=== PATIENT | female | born 1960 | race Caucasian/White ===

== ENCOUNTER 2018-06-28 19:31 | Emergency (ER) | payer OTHER, MEDICARE ==
[2018-06-28 19:53] VITALS: BP 129/63; PULSE 82; TEMP 97.6; BMI 18.6
[2018-06-28] MEDS ORDERED: ACETAMINOPHEN 1000 MG/100 ML VIAL (NON FORMULARY) IVPB ONE (20:12)
[2018-06-28] MEDS ORDERED: ONDANSETRON 4 MG/2 ML VIAL IVPB ONE (20:12)
[2018-06-28] MEDS ORDERED: SODIUM CHLORIDE 1,000 ML IV STA (20:12)
[2018-06-28] MEDS ORDERED: PANTOPRAZOLE SODIUM 40 MG in SODIUM CHLORIDE 100 ML IVPB ONE (20:12)
[2018-06-28] MEDS ORDERED: ACETAMINOPHEN INJECTION 100 ML IVPB ONE (20:22)
[2018-06-28] MEDS ORDERED: ONDANSETRON 4 MG/2 ML VIAL ONE (20:23)
[2018-06-28] MEDS ORDERED: PANTOPRAZOLE SODIUM 40 MG VIAL ONE (20:23)
[2018-06-28 20:34] LABS: BASO % 1.3 % (0-2.0); EOS % 4.2 % (0-4.5); HEMATOCRIT 41.5 % (32.4-45.2); HEMOGLOBIN 13.7 GM/dl (10.7-15.3); LYMPH % 36.5 % (8-40); MCH 30.2 pg (25.7-33.7); MCHC 33.1 g/dl (32.0-36.0); MEAN CELL VOLUME 91.3 fl (80-96); MEAN PLT VOLUME 8.9 fl (7.5-11.1); MONO % 9.9 % (3.8-10.2); NEUT % 48.1 % (42.8-82.8); PLATELET COUNT 256 K/MM3 (134-434); RBC 4.54 M/mm3 (3.60-5.2); RDW 13.5 % (11.6-15.6); WHITE BLOOD COUNT 7.2 K/mm3 (4.0-10.8)
[2018-06-28 20:48] LABS: ALBUMIN 4.2 g/dl (3.4-5.0); ALK PHOS 53 U/L (45-117); ANION GAP 8 MMOL/L (8-16); BILIRUBIN,TOTAL 0.7 mg/dl (0.2-1); BLOOD UREA NITROGEN 14 mg/dl (7-18); CALCIUM 9.2 mg/dl (8.5-10); CHLORIDE 102 mmol/L (98-107); CO2 26 mmol/L (21-32); CREATININE < 0.6 mg/dl (0.55-1.3); GLUCOSE,RANDOM 96 mg/dl (74-106); POTASSIUM 3.6 mmol/L (3.5-5.1); SGOT/AST 21 U/L (15-37); SGPT/ALT 13 U/L (13-61); SODIUM 136 mmol/L (136-145); TOT PROT 6.9 g/dl (6.4-8.2)
--- NOTE | 2018-06-28 22:01 | PDOC ---
History of Present Illness - General Chief Complaint: Pain, Acute Stated Complaint: MID ABDOMINAL PAIN SINCE TUESDAY Time Seen by Provider: 06/28/18 19:37 - History of Present Illness Initial Comments: 06/28/18 21:44 57 F with h/o of rheumatoid arthritis, hearing loss in right ear, Ectopic (1999), and gastritis who presents to the emergency department with epigastric pain x 2 days. The patient notes having severe epigastric and right upper abdominal pain since 3 AM Tuesday morning. She notes that the day before, she had eaten heavy foods and drank alcohol during the Superbowl. The patient notes her pain was on and off yesterday, exacerbated with eating, and accompanied by 2 episodes of vomiting. Pt denies any diarrhea or constipation. The patient notes taking Tylenol last night with no relief and shortly after threw up. The patient denies chest pain, shortness of breath, headache or dizziness. The patient denies fever, chills. Allergies: Sulfur Past surgical history: Ectopic (1999) Social history: None reported Past History - Past Medical History Allergies/Adverse Reactions: Allergies Allergy/AdvReac Type Severity Reaction Status Date / Time sulfur [From Sulfur-8] Allergy Verified 06/28/18 19:33 Home Medications: Ambulatory Orders Infliximab [Remicade 100MG Vial] 100 mg IV MONTHLY 06/28/18 Pantoprazole Sodium 40 mg PO DAILY #30 tablet. 06/28/18 COPD: No Other medical history: RHEUMATOID ARTHRITIS - Suicide/Smoking/Psychosocial Hx Smoking History: Never smoked Have you smoked in the past 12 months: No Information on smoking cessation initiated: No Hx Alcohol Use: No Drug/Substance Use Hx: No Review of Systems - Review of Systems Comments:: 06/28/18 22:01 "GENERAL/CONSTITUTIONAL: No fever or chills. No weakness. HEAD, EYES, EARS, NOSE AND THROAT: No change in vision. No ear pain or discharge. No sore throat. CARDIOVASCULAR: No chest pain, no shortness of breath, no loss of consciousness RESPIRATORY: No cough, wheezing, or hemoptysis. GASTROINTESTINAL: + epigastric pain, N/V, no diarrhea or constipation. GENITOURINARY: No dysuria, frequency, or change in urination. MUSCULOSKELETAL: No joint or muscle swelling or pain. No neck or back pain. SKIN: No rash NEUROLOGIC: No vertigo, no change in strength/sensation. ENDOCRINE: No increased thirst. No abnormal weight change. HEMATOLOGIC/LYMPHATIC: No anemia, easy bleeding, or history of blood clots. ALLERGIC/IMMUNOLOGIC: No hives or skin allergy. *Physical Exam - Vital Signs Last Vital Signs Temp Pulse Resp BP Pulse Ox 97.6 F 82 16 129/63 100 06/28/18 19:35 02 19:35 02 19:35 06/28/18 19:35 06/28/18 19:35 - Physical Exam Comments: 06/28/18 22:01 "GENERAL: Awake, alert, and fully oriented, in no acute distress. HEAD: No signs of trauma EYES: PERRLA, EOMI, sclera anicteric, conjunctiva clear ENT: Auricles normal inspection, hearing grossly normal, nares patent, oropharynx clear without exudates. Moist mucosa NECK: Nontender, no stepoffs, Normal ROM, supple, no lymphadenopathy, JVD, or masses LUNGS: Breath sounds equal, clear to auscultation bilaterally. No wheezes, and no crackles HEART: Regular rate and rhythm, normal S1 and S2, no murmurs, rubs or gallops ABDOMEN: + epigastric tenderness, + RUQ tenderness, normoactive bowel sounds. No guarding, no rebound. No masses EXTREMITIES: Normal range of motion, no edema. No clubbing or cyanosis. No cords, erythema, or tenderness NEUROLOGICAL: Cranial nerves II through XII intact. 5/5 strength and sensation in all extremities, Normal speech, normal gait, normal cerebellar function SKIN: Warm, Dry, normal turgor, no rashes or lesions noted. Moderate Sedation - Procedure Monitoring Vital Signs: Procedure Monitoring Vital Signs Temperature 97.6 F 06/28/18 19:35 Pulse Rate 82 06/28/18 19:35 Respiratory Rate 16 06/28/18 19:35 Blood Pressure 129/63 06/28/18 19:35 O2 Sat by Pulse Oximetry (%) 100 06/28/18 19:35 Heart Score/ECG Review - History History: Slightly suspicious - Electrocardiogram EKG: Normal - Age Age: 45-65 - Risk Factors Based on the list above the patient has:: No risk factors known - ECG Impressions Comment:: 06/28/18 22:04 NSR, no WILLIAM/STDs, no TWIs, axis wnl, intervals wnl, rate 60 ED Treatment Course - LABORATORY CBC & Chemistry Diagram: 06/28/18 20:20 06/28/18 20:20 - ADDITIONAL ORDERS Additional order review: Laboratory Results 06/28/18 06/28/18 20:20 20:20 Sodium 136 Potassium 3.6 Chloride 102 Carbon Dioxide 26 Anion Gap 8 BUN 14 Creatinine < 0.6 Creat Clearance w eGFR > 60 Random Glucose 96 Calcium 9.2 Total Bilirubin 0.7 AST 21 ALT 13 Alkaline Phosphatase 53 Creatine Kinase 47 Troponin I < 0.03 Total Protein 6.9 Albumin 4.2 06/28/18 20:20 RBC 4.54 MCV 91.3 MCHC 33.1 RDW 13.5 MPV 8.9 Neutrophils % 48.1 Lymphocytes % 36.5 Monocytes % 9.9 Eosinophils % 4.2 Basophils % 1.3 - RADIOLOGY Radiology Studies Ordered: Category Date Time Status ABDOMEN US [US] Stat Ultrasound 06/28/18 20:11 Ordered - Medications Given in the ED: ED Medications Discontinued Medications Generic Name Dose Route Start Last Admin Trade Name Freq PRN Reason Stop Dose Admin Acetaminophen 1,000 mg 06/28/18 20:12 06/28/18 20:31 Ofirmev Injection - IVPB 06/28/18 20:13 1,000 mg ONCE ONE Administration Pantoprazole Sodium 40 mg/ 100 mls @ 200 mls/hr 06/28/18 20:12 06/28/18 20:31 Sodium Chloride IVPB 06/28/18 20:41 200 mls/hr ONCE ONE Administration Sodium Chloride 1,000 mls @ 1,000 mls/hr 06/28/18 20:12 06/28/18 20:30 Normal Saline - IV 06/28/18 21:11 1,000 mls/hr ASDIR STA Administration Ondansetron HCl 4 mg 06/28/18 20:12 06/28/18 20:31 Zofran Injection IVPB 06/28/18 20:13 Not Given ONCE ONE Medical Decision Making - Medical Decision Making 06/28/18 22:03 57 F with epigastric pain, N+V x 2 days. Suspect gastritis 2/2 alcohol and heavy food during Superbowl. Will r/o ACS with EKG and troponin, though pt denies CP/SOB. Also consider pancreatitis. Will r/o irineo given RUQ tenderness on exam. - Labs, lipase - EKG, trop - RUQ sono - GI cocktail 06/28/18 22:17 Labs all wnl Trop negative EKG unremarkable Pt reassessed - now feels significantly better with GI meds Will DC with GI f/u Pt is well appearing, with normal vitals. Clinically stable for DC at this time. I discussed the physical exam findings, ancillary test results and final diagnoses with the patient. I answered all of the patient's questions. The patient was satisfied with the care received and felt comfortable with the discharge plan and treatment plan. The patient agrees to follow up with the primary care physician within 24-72 hours. *DC/Admit/Observation/Transfer Diagnosis at time of Disposition: Gastritis - Discharge Dispostion Disposition: HOME Condition at time of disposition: Stable - Referrals - Patient Instructions Printed Discharge Instructions: DI for Gastritis Additional Instructions: Take the pantoprazole daily to treat your gastritis. If you experience worsening abdominal pain, vomiting, or any other concerning symptoms, return to the ER immediately. Otherwise, follow up with your rock splitter within 1 week. You may need a repeat endoscopy to evaluate for stomach ulcers. - Post Discharge Activity - Attestations Physician Attestion: 06/28/18 22:19 I, Dr. Bam Lobato MD, attest that this document has been prepared under my direction and personally reviewed by me in its entirety. I further attest, that it accurately reflects all work, treatment, procedures and medical decision -making performed by me.
[2018-06-28 22:05] LABS: LIPASE 136 U/L (73-393)
--- NOTE | 2018-06-29 16:46 | EKG ---
Test Reason : Blood Pressure : / mmHG Vent. Rate : 060 BPM Atrial Rate : 060 BPM P-R Int : 176 ms QRS Dur : 086 ms QT Int : 418 ms P-R-T Axes : 076 070 053 degrees QTc Int : 418 ms NORMAL SINUS RHYTHM NORMAL ECG NO PREVIOUS ECGS AVAILABLE Confirmed by MALINA DSOUZA MD ([id number]) on 06/29/2018 4:46:03 PM Referred By: PR Confirmed By:MALINA DSOUZA MD
== END 2018-06-28 22:29 | disposition home or self-care (01) ==
LOC: FER 19:31
PROC: 3E033NZ Introduction of Analgesics, Hypnotics, Sedatives into Peripheral Vein, Percutaneous Approach (ICD-10-PCS; principal; 2018-06-28)
PROC: 3E033GC Introduction of Other Therapeutic Substance into Peripheral Vein, Percutaneous Approach (ICD-10-PCS; 2018-06-28)
PROC: 3E0337Z Introduction of Electrolytic and Water Balance Substance into Peripheral Vein, Percutaneous Approach (ICD-10-PCS; 2018-06-28)
DX: K29.70 Gastritis, unspecified, without bleeding (principal); M06.9 Rheumatoid arthritis, unspecified; H91.91 Unspecified hearing loss, right ear; Z88.2 Allergy status to sulfonamides
CPT/HCPCS: 36415; 76700-TC; 80053; 82550; 83690; 84484; 85025; 93005; 96365; 96375; 99281-25; J0131; J7030